=== PATIENT | male | born 1970 | race Caucasian/White ===

== ENCOUNTER 2016-08-10 15:09 | Emergency (ER) | payer SELFPAY ==
[~2016-08-10] VITALS: Ht 177.8 cm; Wt 75.0 kg
[2016-08-10] MEDS ORDERED: KETOROLAC TROMETHAMINE 30 MG/ML VIAL IVP ONE (16:15)
[2016-08-10] MEDS ORDERED: DIAZEPAM 5 MG/ML 2 ML SYRINGE IVP ONE (16:15)
[2016-08-10 16:44] VITALS: BP 127/70
== END 2016-08-10 16:46 | disposition home or self-care (01) ==
LOC: EMS 15:11
DX: M62.830 Muscle spasm of back (principal)
CPT/HCPCS: 96374; 96375; 99284; J1885 ×2

== ENCOUNTER 2016-10-05 18:06 | Emergency (ER) | payer SELFPAY ==
[~2016-10-05] VITALS: Ht 177.8 cm; Wt 77.3 kg
[2016-10-05] MEDS ORDERED: TRAM50TA4 PO (18:20)
[2016-10-05] MEDS ORDERED: ETHYL CHLORIDE 103.5 ML SPRAY TP ONE (20:00)
[2016-10-05] MEDS ORDERED: LIDOCAINE HCL 1% 10 ML VIAL INJ ONE (20:15)
[2016-10-05] MEDS ORDERED: MORPHINE SULFATE 4 MG/ML SYRINGE IVP ONE (20:15)
[2016-10-05] MEDS ORDERED: POVIDONE-IODINE 10% 120 ML SOLUTION TP ONE ×2 (20:22→20:30)
[2016-10-05 20:23] LABS: BASOPHILS % (AUTO) 0.4 % (0.0-2.0); EOSINOPHILS % (AUTO) 0.8 % (1.0-6.0); HEMATOCRIT 37.7 % (41-53); HEMOGLOBIN 12.5 g/dL (13.5-17.5); LYMPHOCYTES # (AUTO) 1.6 K/uL (1.0-4.8); MEAN CORPUSCULAR HEMOGLOBIN 27.8 pg (26.0-34.0); MEAN CORPUSCULAR VOLUME 84 fL (80-100); MONOCYTES # (AUTO) 1.4 K/uL (0.1-1.0); MONOCYTES % (AUTO) 9.1 % (2.0-9.0); NEUTROPHILS # (AUTO) 12.6 K/uL (1.8-7.7); NEUTROPHILS % (AUTO) 79.7 % (40.0-70.0); PLATELET COUNT (AUTO) 340 K/uL (150-450); RED BLOOD CELL COUNT(AUTO) 4.48 MIL/uL (4.50-5.90); RED CELL DISTRIBUTION WIDTH 14.6 % (11.5-14.5); WHITE BLOOD COUNT (AUTO) 15.8 K/uL (4.5-11.0)
[2016-10-05] MEDS ORDERED: POVIDONE-IODINE 10% 240 ML SOLUTION TP ONE (20:30)
[2016-10-05 20:31] LABS: ANION GAP 6 mmol/L (8-16); CALCIUM, TOTAL 8.6 mg/dL (8.8-10.5); CARBON DIOXIDE 29 mmol/L (22-29); CHLORIDE 97 mmol/L (98-107); GLOMERULAR FILTR. RATE CALC > 60 mL/min (>60); INR 1.1 (0.9-1.1); POTASSIUM 3.9 mmol/L (3.5-5.1); PROTHROMBIN TIME 11.2 SEC (9.4-11.6); SODIUM SERUM 132 mmol/L (136-145); UREA NITROGEN, BLOOD 11 mg/dL (7-18)
[2016-10-05 20:38] LABS: ALANINE AMINOTRANSFERASE 56 U/L (12-78); ALBUMIN 2.8 g/dL (3.4-5.0); ASPARTATE AMINOTRANSFERASE 49 U/L (15-37); BILIRUBIN,TOTAL 0.5 mg/dL (0.1-1.0); TOTAL PROTEIN, SERUM 7.4 g/dL (6.4-8.2)
[2016-10-05 21:27] LABS: ADD UA MICROSCOPIC NO; APPEARANCE,URINE CLEAR (CLEAR); GLUCOSE, URINE (UA) NEGATIVE (NEGATIVE); KETONES,URINE TRACE mg/dL (NEGATIVE); LEUKOCYTE ESTERASE ,URINE NEGATIVE (NEGATIVE); OCCULT BLOOD,URINE NEGATIVE (NEGATIVE); PROTEIN,URINE POS 1+ (NEGATIVE)
[2016-10-05 22:09] LABS: APPEARANCE,UNSPUN,BODY FLUID CLOUDY (CLEAR)
[2016-10-05 22:10] LABS: COLOR,BODY FLUID YELLOW (LT YELLOW); OTHER CELLS,BODY FLUID 0
[2016-10-05 22:13] LABS: CRYSTALS, SYNOVIAL FLUID None Seen (None Seen)
[2016-10-05 22:55] VITALS: BP 112/61
== END 2016-10-05 23:03 | disposition home or self-care (01) ==
LOC: EMS 18:07
DX: M25.461 Effusion, right knee (principal); R07.9 Chest pain, unspecified
CPT/HCPCS: 20610; 36415; 71010; 73562; 80053; 81003; 83690; 84484; 85025; 85610; 85730; 87070; 87205; 89051; 89060; 93005; 96374; 99285; J2270; J3490

== ENCOUNTER 2023-11-17 20:31 | Emergency (ER) | payer MEDICAID ==
[~2023-11-17] VITALS: Ht 175.3 cm; Wt 79.5 kg
[~2023-11-17 20:31] MED LIST: ASPI-1450 PO; FURO20TA5 PO; LEVO-72 PO; LISI-892 PO
[2023-11-17 20:43] VITALS: TEMP 99.2
[2023-11-17 22:00] VITALS: BP 145/98; PULSE 81; RESP 15; O2SAT 99
[2023-11-17] MEDS ORDERED: WARF7.5T7 PO (22:11)
[2023-11-17] MEDS: WARFARIN SODIUM 5 MG TABLET PO ONE (22:32)
== END 2023-11-17 22:39 | disposition home or self-care (01) ==
LOC: EMS 20:31
DX: Z95.2 Presence of prosthetic heart valve (principal); Z76.0 Encounter for issue of repeat prescription; Z98.62 Peripheral vascular angioplasty status; Z98.890 Other specified postprocedural states; Z79.82 Long term (current) use of aspirin
CPT/HCPCS: 93005; 99283

== ENCOUNTER 2024-03-29 20:35 | Emergency (ER) | payer MEDICAID ==
[~2024-03-29] VITALS: Ht 177.8 cm; Wt 77.3 kg
[~2024-03-29 20:35] MED LIST changes: +WARF7.5T7 PO
[2024-03-29 20:40] VITALS: BP 139/78; PULSE 95; RESP 18; TEMP 98.6; O2SAT 100
[2024-03-29 21:15] LABS: PROTHROMBIN TIME 10.7 SEC (9.4-11.6)
[2024-03-29] MEDS ORDERED: WARF7.5T7 PO (22:54)
[2024-03-29] MEDS: WARFARIN SODIUM 7.5 MG TABLET PO ONE (23:53)
== END 2024-03-29 23:53 | disposition home or self-care (01) ==
LOC: EMS 20:35
DX: Z76.0 Encounter for issue of repeat prescription (principal); Z95.2 Presence of prosthetic heart valve; Z79.01 Long term (current) use of anticoagulants; Z79.82 Long term (current) use of aspirin; Z79.899 Other long term (current) drug therapy
CPT/HCPCS: 85610; 85730; 99283